=== PATIENT | male | born 1990 | race Caucasian/White ===

== ENCOUNTER 2025-08-22 15:13 | Emergency (ER) | payer OTHER | END 2025-08-22 16:00 | disposition home or self-care (01) | LOC: LL.ED 15:13 | DX: S61.431A Puncture wound without foreign body of right hand, initial encounter (principal); I10 Essential (primary) hypertension; Z91.030 Bee allergy status; Z79.2 Long term (current) use of antibiotics; Z79.899 Other long term (current) drug therapy; W26.8XXA Contact with other sharp object(s), not elsewhere classified, initial encounter | CPT/HCPCS: 99282 ==